=== PATIENT | female | born 1995 | race African-American/Black ===

== ENCOUNTER 2020-09-04 08:05 | Outpatient (REF) | payer OTHER, SELFPAY ==
--- NOTE | ~2020-09-04 | US_ITS ---
EXAMINATION: US ABDOMEN COMPLETE CLINICAL INFORMATION: Nausea and abdominal pain. COMPARISON: None TECHNIQUE: Real-time imaging of the abdominal viscera. FINDINGS: PANCREAS: Normal. ABDOMINAL AORTA: The proximal, mid, and distal segments are normal in caliber. INFERIOR VENA CAVA: Visualized portions are normal. LIVER: Normal. The liver is normal in size. The liver contour is normal. Parenchymal echogenicity is normal. No focal hepatic lesion. There is no intrahepatic biliary duct dilatation seen. GALLBLADDER: Normal. The gallbladder is physiologically distended without evidence of stones, sludge, polyps, wall thickening or pericholecystic fluid. COMMON BILE DUCT: Normal in caliber measuring 0.4 cm in diameter. RIGHT KIDNEY: Normal. No hydronephrosis. No renal calculi or focal parenchymal lesions. The kidney measures 8.8 cm in maximum dimension. LEFT KIDNEY: Normal. No hydronephrosis. No renal calculi or focal parenchymal lesions. The kidney measures 10.0 cm in maximum dimension. SPLEEN: Normal. The spleen measures 7.4 cm in maximum dimension. FREE FLUID: None. US/US abdomen complete IMPRESSION: Unremarkable complete abdomen ultrasound.
== END 2020-09-04 08:06 | disposition home or self-care (01) ==
LOC: HO.US 08:05
PROVIDERS: Visit Provider Registered Nurse
DX: R10.9 Unspecified abdominal pain (principal); R11.0 Nausea
CPT/HCPCS: 76700

== ENCOUNTER 2020-10-19 12:32 | Outpatient (REF) | payer OTHER, SELFPAY ==
--- NOTE | ~2020-10-19 | CT_ITS ---
EXAMINATION: CT ABDOMEN AND PELVIS WITH CONTRAST CLINICAL INFORMATION: Right lower quadrant pain COMPARISON: Previous abdominal ultrasound August 2020 TECHNIQUE: Multidetector volumetric images were obtained from the superior aspect of the liver through the pubic symphysis following administration 85 mL of Omnipaque 350 intravenous contrast. Sagittal and coronal reformatted images were obtained on the technologist's workstation. Oral contrast: Yes This CT examination was performed using dose optimization techniques as appropriate, variously including the following: *Automated exposure control *Adjustment of mA and/or kV according to patient size (this includes techniques or standardized protocols for targeted exams where dose is matched to indication/reason for exam; i.e. extremities or head) *Use of iterative reconstruction technique DLP: 260 mGy-cm FINDINGS: LUNG BASES: The visualized lung bases are unremarkable. LIVER, GALLBLADDER, AND BILIARY TREE: The liver is normal in size, shape, and attenuation. There is a 9 mm low-attenuation lesion seen high in the junction of the anterior segment of the right lobe and medial segment of the left lobe of the liver axial image 7 series 3. Hounsfield units following IV contrast measure 80 not compatible with a simple cyst. This was not seen by ultrasound. No other focal hepatic lesion or biliary ductal dilatation is present. The gallbladder is unremarkable with no evidence of radiopaque gallstones, gallbladder wall thickening, or obvious pericholecystic inflammatory changes. PANCREAS: Unremarkable. SPLEEN: Unremarkable. ADRENAL GLANDS: Unremarkable. KIDNEYS AND URETERS: There is stool seen throughout the colon in the colon is slightly distended questionable for constipation. Small and large bowel is otherwise unremarkable. The appendix is retrocecal. The appendix is normal appearing. BLADDER: Unremarkable. GASTROINTESTINAL TRACT: The small and large bowel are unremarkable. The appendix is unremarkable. ABDOMINAL WALL: No significant hernia is appreciated. LYMPH NODES: Normal. VASCULAR: Unremarkable. PELVIC VISCERA: Unremarkable. OSSEOUS STRUCTURES: There is curvature of the lower lumbar spine to the right. CT/CT abdomen pelvis w con IMPRESSION: Normal-appearing appendix. Stool throughout the colon questionable for constipation. 9 mm low-attenuation liver lesion not compatible with a simple cyst. This was not seen by ultrasound. Comparison with old outside exams if available is recommended. This could be further characterized with liver MRI with contrast if clinically indicated.
[2020-10-19] MEDS: iohexoL 350 MG/ML 100 ML INFUS..BTL IV (16:00)
[2020-10-19] MEDS: Barium Sulfate Oral (Vanilla) 450 ML ORAL.SUSP 900 ML PO (16:01)
== END 2020-10-19 12:33 | disposition home or self-care (01) ==
LOC: HO.CT 12:32
PROVIDERS: Visit Provider Emergency Medicine
DX: R10.31 Right lower quadrant pain (principal)
CPT/HCPCS: 74177; Q9967

== ENCOUNTER 2021-04-12 15:06 | Outpatient (REF) | payer OTHER, SELFPAY ==
--- NOTE | ~2021-04-12 | MR_ITS ---
EXAMINATION: MR ABDOMEN WITHOUT AND WITH CONTRAST CLINICAL INFORMATION: Follow-up liver lesion seen on CT scan. Liver disease. COMPARISON: Previous abdominal and pelvic CT scan September 2020 and abdominal ultrasound August 2020. TECHNIQUE: MR abdomen was performed without and with use of 5 mL intravenous Gadavist gadolinium contrast. Postcontrast images are performed in multiphase dynamic sequences. Imaging was performed in 3 planes. FINDINGS: LUNG BASES: The visualized lung bases are unremarkable. LIVER, GALLBLADDER, AND BILIARY TREE: The liver is normal in size, smooth in contour, and normal in signal. There is a 9 mm lesion high in the liver at the junction of the medial segment of the left lobe and anterior segment of the right lobe. This is low signal on T1-weighted sequences, high signal on T2-weighted sequences and demonstrates minimal peripheral enhancement. No septations, solid component or mural nodularity is seen. MR appearance is most suggestive of a complex cyst. No other focal liver lesion is seen. The gallbladder is unremarkable with no evidence of gallbladder wall thickening, or obvious pericholecystic inflammatory changes. PANCREAS: Unremarkable. SPLEEN: Normal. ADRENAL GLANDS: Normal. KIDNEYS AND URETERS: The kidneys are normal in size, shape, and enhance symmetrically. No hydronephrosis. No perinephric stranding. GASTROINTESTINAL TRACT: No bowel obstruction. No ascites or fluid collection. ABDOMINAL WALL: No significant hernia is appreciated. LYMPH NODES: No lymphadenopathy. VASCULAR: Unremarkable. OSSEOUS STRUCTURES: Marrow signal normal. MR/MR abdomen wo/w con IMPRESSION: 9 mm lesion high in the liver at the junction of the medial segment of the left lobe and anterior segment of the right lobe. Signal and enhancement characteristics are most suggestive of a complex cyst with peripheral wall enhancement. Six-month imaging follow-up recommended.
== END 2021-04-12 15:07 | disposition home or self-care (01) ==
LOC: HO.MRI 15:06
PROVIDERS: Visit Provider Emergency Medicine
DX: K76.9 Liver disease, unspecified (principal)
CPT/HCPCS: 74183; A9585

== ENCOUNTER 2021-09-29 13:27 | Outpatient (REF) | payer OTHER, SELFPAY ==
--- NOTE | ~2021-09-29 | US_ITS ---
EXAMINATION: US PELVIS CLINICAL INFORMATION: 26-year-old female found to have hyperechoic mass within the right ovary on outside imaging. For follow-up. COMPARISON: Report from prior outside ultrasound is available and is reviewed during interpretation of the current study. TECHNIQUE: Ultrasound of the pelvis is performed using transabdominal approach only. The patient refused transvaginal exam. FINDINGS: Uterus: The uterus is anteverted and measures 7.2 x 2.9 x 4.3 cm. The double wall endometrial thickness is 0.7 mm. The endometrium appears to be into 2 different components extending to the right and left of the midline at the fundus, may represent arcuate uterus. The uterus is smooth in contour and has normal myometrial echogenicity. No visible fibroid. Adnexa: Both ovaries are visualized. There is normal color flow to the adnexa. There is no ovarian torsion. There is no pelvic ascites or fluid collection. Right ovary measures 3.5 x 2.0 x 2.5 cm. Specific note is made of approximately 1 cm maximum dimension echogenic focus within the right ovary, may represent small fat and/or hemorrhage. Evaluation is technically limited due to patient's refusal for transvaginal examination. Alternative imaging modality such as MRI of the pelvis may be considered for further clarification, if clinically appropriate. Left ovary measures 2.8 x 1.9 x 2.4 cm. Trace amount of free fluid is noted within the pelvis. US/US pelvic and transvaginal IMPRESSION: 1. The right ovary shows 1 cm maximum dimension echogenic focus, not optimally characterized since the patient refused transvaginal examination. However, may represent small focal fat and/or hemorrhage. Possibility of the thyroid cyst/mature cystic teratoma is not excluded. Alternative imaging modality such as MRI of the pelvis may be considered for further clarification, if clinically appropriate. 2. Morphologically normal-appearing left ovary and uterus. However, the endometrium at the level of the fundus of the uterus appears to be into 2 different component extending to the right and left of the midline, may represent arcuate uterus. 3. Trace amount of fluid within the pelvis.
== END 2021-09-29 13:28 | disposition home or self-care (01) ==
LOC: HO.US 13:27
PROVIDERS: PCP Registered Nurse Community Health; Visit Provider Registered Nurse Community Health
DX: N83.8 Other noninflammatory disorders of ovary, fallopian tube and broad ligament (principal)
CPT/HCPCS: 76830; 76856

== ENCOUNTER 2021-10-13 14:54 | Outpatient (REF) | payer OTHER, SELFPAY ==
--- NOTE | ~2021-10-13 | MR_ITS ---
EXAMINATION: MRI PELVIS WITH AND WITHOUT CONTRAST CLINICAL INFORMATION: Reason for Exam Abnormality of right ovary on ultrasound 09/29/21 COMPARISON: Pelvic ultrasound 09/29/2021 TECHNIQUE: Multiple routine MRI sequences through the pelvis were obtained before and after the uneventful administration of 5 mL of Gadavist gadolinium-based IV contrast. FINDINGS: UTERUS: Anteverted uterus has a normal configuration without arcuate morphology and measures 8.4 x 3.7 x 4.0. cm ([id number] x anterior-posterior x transverse). Endometrium is uniform and measures 0.7 cm in thickness. There is focal junctional zone thickening posteriorly measuring up to 1.3 cm in thickness raising suspicion for adenomyosis. CERVIX: Few nabothian cysts in the cervix. VAGINA: Unremarkable. OVARIES: The right ovary measures 3.2 x 3.1 cm. The right ovary is remarkable for an involuting physiologic corpus luteum. No intrinsically T1 hyperintense lesions to suggest fat or hemorrhage to correspond to the sonographic finding which may reflect a technical artifact. The left ovary measures 3.1 x 2.0 cm. Left ovary is unremarkable. KIDNEYS: 2 normally positioned kidneys are seen. BLADDER: Unremarkable. PELVIC FREE FLUID: Trace physiologic free fluid in the pelvis. LYMPH NODES: No pathologically enlarged lymph nodes. OSSEOUS STRUCTURES: No acute or suspicious osseous abnormalities. MR/MR pelvis wo/w con IMPRESSION: The right ovary is remarkable for an involuting physiologic corpus luteum. No intrinsically T1 hyperintense lesions to suggest fat or hemorrhage to correspond to the sonographic finding which may have reflected a technical artifact. There is focal junctional zone thickening to 1.3 cm raising suspicion for adenomyosis. Uterus has a normal configuration without arcuate morphology.
== END 2021-10-13 14:55 | disposition home or self-care (01) ==
LOC: HO.MRI 14:54
PROVIDERS: Visit Provider Registered Nurse Community Health
DX: N83.8 Other noninflammatory disorders of ovary, fallopian tube and broad ligament (principal)
CPT/HCPCS: 72197; A9585

== ENCOUNTER 2021-10-28 17:50 | Outpatient (REF) | payer OTHER, SELFPAY ==
--- NOTE | ~2021-10-28 | MR_ITS ---
EXAMINATION: MR ABDOMEN WITHOUT AND WITH CONTRAST CLINICAL INFORMATION: Follow up liver lesion COMPARISON: Previous MRI of the abdomen March 2021, CT of the abdomen September 2020 and abdominal ultrasound August 2020 TECHNIQUE: MR abdomen was performed without and with use of 5 mL intravenous Gadavist gadolinium contrast. Postcontrast images are performed in multiphase dynamic sequences. Imaging was performed in 3 planes. FINDINGS: LUNG BASES: The visualized lung bases are unremarkable. LIVER, GALLBLADDER, AND BILIARY TREE: The liver is normal in size, smooth in contour, and normal in signal. There is a 8 mm lesion high in the junction of the medial segment of the left lobe and anterior segment of the right lobe. This is low signal on T1-weighted sequences, high signal on T2-weighted sequences and demonstrates peripheral thin wall enhancement and may contain a single thin septation. This is suggestive of a complex cyst and is stable from previous MRI March 2021. No other focal liver lesion is seen. No biliary ductal dilatation is present. The gallbladder is unremarkable with no evidence of gallbladder wall thickening, or obvious pericholecystic inflammatory changes. PANCREAS: Unremarkable. SPLEEN: Normal. ADRENAL GLANDS: Normal. KIDNEYS AND URETERS: The kidneys are normal in size, shape, and enhance symmetrically. No hydronephrosis. No perinephric stranding. GASTROINTESTINAL TRACT: No bowel obstruction. No ascites or fluid collection. ABDOMINAL WALL: No significant hernia is appreciated. LYMPH NODES: No lymphadenopathy. VASCULAR: Unremarkable. OSSEOUS STRUCTURES: Marrow signal normal. MR/MR abdomen wo/w con IMPRESSION: Stable probable complex cyst in the liver.
== END 2021-10-28 17:51 | disposition home or self-care (01) ==
LOC: HO.MRI 17:50
PROVIDERS: Visit Provider Registered Nurse Community Health
DX: R93.2 Abnormal findings on diagnostic imaging of liver and biliary tract (principal)
CPT/HCPCS: 74183; A9585

== ENCOUNTER 2022-07-22 11:02 | Outpatient (REF) | payer OTHER, SELFPAY ==
[2022-07-23 13:23] LABS: BV Int Neg Control Negative (Negative); BV Int Pos Control Positive (Positive)
== END 2022-07-22 11:03 | disposition home or self-care (01) ==
LOC: HO.LNP 11:02
PROVIDERS: Visit Provider Advanced Practice Midwife
DX: R10.2 Pelvic and perineal pain (principal); R39.15 Urgency of urination; R10.31 Right lower quadrant pain; N89.8 Other specified noninflammatory disorders of vagina
CPT/HCPCS: 87480; 87510; 87660; 99212

== ENCOUNTER 2022-07-22 13:09 | Emergency (ER) | payer OTHER, SELFPAY ==
--- NOTE | ~2022-07-22 | CT_ITS ---
EXAMINATION: CT ABDOMEN AND PELVIS WITHOUT CONTRAST CLINICAL INFORMATION: Right lower quadrant pain. Question stone. COMPARISON: MRI 10/28/2021. CT 10/19/2020. TECHNIQUE: Multidetector volumetric imaging was performed from the superior aspect of the liver through the pubic symphysis. Sagittal and coronal reformatted images were obtained on the technologist's workstation. This CT examination was performed using dose optimization techniques as appropriate, variously including the following: *Automated exposure control *Adjustment of mA and/or kV according to patient size (this includes techniques or standardized protocols for targeted exams where dose is matched to indication/reason for exam; i.e. extremities or head) *Use of iterative reconstruction technique DLP: 354 mGy-cm FINDINGS: LUNG BASES: The visualized lung bases are unremarkable. LIVER, GALLBLADDER, AND BILIARY TREE: The liver is normal in size, shape, and attenuation. No biliary ductal dilatation. Patent appearance of the previously evaluated hepatic cyst.. The gallbladder is unremarkable with no evidence of radiopaque gallstones, gallbladder wall thickening, or obvious pericholecystic inflammatory changes. PANCREAS: Unremarkable. SPLEEN: Unremarkable. ADRENAL GLANDS: Unremarkable. KIDNEYS AND URETERS: The kidneys are normal in size, shape, and attenuation. Question of subtle medullary nephrocalcinosis. No hydronephrosis, hydroureter, or calculi seen. No perinephric stranding. BLADDER: Unremarkable. GASTROINTESTINAL TRACT: The stomach is distended without wall thickening. Normal caliber small bowel. No obstruction. No colonic wall thickening or inflammatory change. Mild diffuse colonic stool burden. Normal appendix. No free air or free fluid. ABDOMINAL WALL: No significant hernia is appreciated. LYMPH NODES: Normal. VASCULAR: Unremarkable. PELVIC VISCERA: The uterus and adnexa are unremarkable. Multiple pelvic phleboliths. OSSEOUS STRUCTURES: No acute or suspicious osseous abnormality. CT/CT abdomen pelvis wo IV con IMPRESSION: No acute findings in the abdomen or pelvis. No hydronephrosis or nephrolithiasis. Normal appendix. 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 Fleischner guidelines were followed.
--- NOTE | 2022-07-22 13:18 | ED_ITS ---
HPI - General Adult General Chief complaint: Abdominal Pain <IVANNA Arrieta - Last Filed: 07/22/22 13:24> Stated complaint: Sent by OBGYN to check appendix <IVANNA Arrieta - Last Filed: 07/22/22 13:24> Time Seen by Provider: 07/22/22 15:34 <IVANNA Arrieta - Last Filed: 07/22/22 13:24> Source: patient <Kaylyn Aburto АНДРЕЙ Curiel - Last Filed: 07/23/22 12:51> Mode of arrival: ambulatory <Kaylyn Aburto АНДРЕЙ Curiel - Last Filed: 07/23/22 12:51> Limitations: no limitations <Kaylyn Curiel CNP - Last Filed: 07/23/22 12:51> History of Present Illness HPI narrative: Patient is a 26 old female who presents to the emergency department for evaluation of right lower abdominal pain and dysuria, intermittent hematuria for the past 2 months. She has been followed by her rn bariatric provider for this. She was referred to the emergency department today to exclude appendicitis. Denies fevers, chills, nausea, vomiting, left-sided abdominal pain, vaginal discharge, abnormal vaginal bleeding. <Kaylyngavin Curiel CNP - Last Filed: 07/23/22 12:51> Related Data Home medications: Home Medications Medication Instructions Recorded Confirmed No Known Home Meds 01/27/22 01/27/22 <IVANNA Arrieta - Last Filed: 07/22/22 13:24> Allergies/adverse reactions: Allergies Allergy/AdvReac Type Severity Reaction Status Date / Time No Known Allergies Allergy Unverified 07/22/22 11:15 <IVANNA Arrieta - Last Filed: 07/22/22 13:24> Review of Systems Review of Systems: Constitutional: No weight loss, fever, chills, weakness or fatigue. Skin: No rash or itching. Cardiovascular: No chest pain, chest pressure or chest discomfort. No palp itations or pedal edema. Respiratory: No shortness of breath, cough or sputum production. Gastrointestinal: No anorexia, nausea, vomiting or diarrhea. Positive abdominal pain. No blood in stool. Genitourinary: Positive burning micturition. No urinary frequency or incontinence. Musculoskeletal: No muscle pain, back pain, joint pain or stiffness. Psychiatric: No depression or anxiety. <Kaylyn Curiel CNP - Last Filed: 07/23/22 12:51> Yes all other systems are reviewed and are negative <Kaylyn Curiel CNP - Last Filed: 07/23/22 12:51> FOR[facility], [facility] Past Medical History Attestation statement: The following information was validated with the patient. <Kaylyn Curiel CNP - Last Filed: 07/23/22 12:51> Source: old records reviewed <Kaylyn Curiel CNP - Last Filed: 07/23/22 12:51> Medical History: Medical History Hematuria Kidney cysts <IVANNA Arrieta - Last Filed: 07/22/22 13:24> Family History Family History: Family History Father HTN (hypertension) Sister Asthma Paternal Grandfather Prostate cancer Other Diabetes <IVANNA Arrieta - Last Filed: 07/22/22 13:24> Social History Social History: Social History Household Members: Significant Other Housing: Apartment Alcohol intake: current Alcohol intake frequency: holidays/special occasions only Patient Tobacco Use Status: Never used Tobacco Advance Directives: No Advance Directives Information Provided: No service: No Current occupational status: employed 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 Sexual orientation: Straight/Heterosexual Gender identity: Female <IVANNA Arrieta - Last Filed: 07/22/22 13:24> Physical Exam ED Vital Signs: Vital Signs - 24 hr 07/22/22 13:20 Temperature 98 F Pulse Rate 94 Respiratory Rate 18 Blood Pressure 132/79 Pulse Oximetry 100 Oxygen Delivery Method Room Air BMI result Body Mass Index 24.6 <IVANNA Arrieta - Last Filed: 07/22/22 13:24> Vital Signs - 24 hr 07/22/22 13:20 Temperature 98 F Pulse Rate 94 Respiratory Rate 18 Blood Pressure 132/79 Pulse Oximetry 100 Oxygen Delivery Method Room Air BMI result Body Mass Index 24.6 <Kaylyn Curiel CNP - Last Filed: 07/23/22 12:51> Appearance: Alert.?Oriented to person, place and time. No acute distress.?Normal affect. Eyes: Pupils equal, round and reactive to light.? ENT: Pharynx normal.?? Neck: Normal inspection.? Neck supple.?? CVS: Heart sounds normal. Normal heart rate and rhythm.? Pulses normal.?? Respiratory: No respiratory distress.? Lung sounds clear to auscultation bilat erally?? Abdomen: Soft and non-tender. Normoactive bowel sounds. No CVA tenderness. No rebound tenderness. Negative Rovsing sign, psoas sign, obturator's sign Skin: Skin warm and dry.? Normal skin color.? Extremities: No lower extremity edema.? Neuro: Moves all extremities spontaneously. Sensation intact bilat erally.Ambulates with normal steady gait. <Kaylyn Curiel CNP - Last Filed: 07/23/22 12:51> Course Course Course Narrative: RME performed by Whit Mccauley PA-C. Patient is a 26 year old female presenting to the emergency department with right lower quadrant abdominal pain x months and intermittent blood in her urine. Labs and plain CT ordered. Patient placed back in waiting room pending results and room availability. <IVANNA Arrieta Last Filed: 07/22/22 13:24> Medical Decision Making Medical Decision Making MDM Narrative: Patient is a 26 old female who presents to emergency department for evaluation of ongoing right abdominal pain, dysuria, and hematuria. At the time of my examination she is overall well-appearing. Abdominal examination is benign. No CVA tenderness. She is afebrile without tachycardia tachypnea or hypoxia. Reviewed RME; labs indicating no leukocytosis or anemia, CMP is unremarkable, no BHAVANI. HCG is negative. Urinalysis without evidence of infection. CT of the abdomen and pelvis without acute abnormalities, no evidence of hydronephrosis, nephrolithiasis, appendix is normal. Patient being followed by OBGYDoreen; Milton Kelly, office visit 07/22/22 being referred to [facility] for persistent vulvar pain/burning, and management adenomyosis. At this time patient is stable for discharge, advised continued outpatient follow-up with OBGYN as scheduled. <Kaylyn Curiel CNP - Last Filed: 07/23/22 12:51> Differential Diagnosis Differential Diagnoses: The differential diagnosis associated with the presentation includes (As noted above) <Kaylyn Aburto АНДРЕЙ Curiel - Last Filed: 07/23/22 12:51> Lab Data MDM Lab Attestation statement: I reviewed the patient's lab results. <Kaylyngavin Curiel CNP - Last Filed: 07/23/22 12:51> Result Diagrams: 07/22/22 13:46 07/22/22 13:46 <IVANNA Arrieta - Last Filed: 07/22/22 13:24> Labs: Lab Results 07/22/22 07/22/22 07/22/22 Range/Units 13:46 13:46 16:43 WBC 6.2 (4.8-10.8) X10*3/uL RBC 3.98 L (4.20-5.50) X10*6/uL Hgb 12.4 (12.0-16.0) g/dl Hct 37.3 (37.0-47.0) % MCV 93.7 (80.0-98.0) fL MCH 31.2 (27.0-33.0) pg MCHC 33.2 (31.0-35.0) g/dl RDW 13.1 (11.0-16.0) % Plt Count 303 (160-400) X10*3/uL MPV 8.9 L (9.4-12.3) fL Immature Gran % (Auto) 0.2 (0.0-0.4) % Neut % (Auto) 68.8 (45-73) % Lymph % (Auto) 25.4 (20-40) % [place] % (Auto) 4.5 (2-11) % Eos % (Auto) 0.5 (0-4) % Baso % (Auto) 0.6 (0-2) % Lymph # (Auto) 1.6 (1.2-4.9) X10*3/uL [place] # (Auto) 0.3 (0.1-1.2) X10*3/uL Eos # (Auto) 0.0 (0.0-0.4) X10*3/uL Baso # (Auto) 0.0 (0.0-0.2) X10*3/uL Abs Immat Gran (auto) 0.01 (0.00-0.03) X10*3/uL Absolute Neuts (auto) 4.2 (2.0-8.3) x10*3/uL Absolute Nucleated RBC 0.000 (0.0-0.012) X10*3/uL Nucleated RBC % (auto) 0.0 (0.0-0.2) /100WBC Sodium 140 (135-145) mmol/L Potassium 3.9 (3.3-5.1) mmol/L Chloride 104 (96-108) mmol/L Carbon Dioxide 28 (22-29) mmol/L Anion Gap 12 (12-20) BUN 13 (9-16) mg/dL Creatinine 0.96 (0.5-1.4) mg/dL Estim Creat Clear Calc 68.5 Estimated GFR > 60 Random Glucose 84 (60-115) mg/dL Calcium 9.9 (8.4-10.2) mg/dL Magnesium 2.1 (1.6-2.6) mg/dL Total Bilirubin 0.6 (0.0-1.0) mg/dL AST 21 (5-31) U/L ALT 14 (0-31) U/L Alkaline Phosphatase 45 (39-117) U/L Total Protein 7.3 (6.5-8.0) g/dL Albumin 4.7 (3.5-5.0) g/dL Beta HCG, Quant < 2 mIU/mL Urine Color Yellow Urine Appearance Clear Urine pH 7.5 (5.0-9.0) Ur Specific [place] 1.020 (1.005-1.025) Urine Protein Negative (Neg-Trace) mg/dL Urine Glucose (UA) Negative (Negative) mg/dL Urine Ketones Negative (Negative) mg/dL Urine Blood Negative (Negative) Urine Nitrite Negative (Negative) Ur Leukocyte Esterase Negative (Negative) <IVANNA Arrieta - Last Filed: 07/22/22 13:24> Lab Results 07/22/22 07/22/22 07/22/22 Range/Units 13:46 13:46 16:43 WBC 6.2 (4.8-10.8) X10*3/uL RBC 3.98 L (4.20-5.50) X10*6/uL Hgb 12.4 (12.0-16.0) g/dl Hct 37.3 (37.0-47.0) % MCV 93.7 (80.0-98.0) fL MCH 31.2 (27.0-33.0) pg MCHC 33.2 (31.0-35.0) g/dl RDW 13.1 (11.0-16.0) % Plt Count 303 (160-400) X10*3/uL MPV 8.9 L (9.4-12.3) fL Immature Gran % (Auto) 0.2 (0.0-0.4) % Neut % (Auto) 68.8 (45-73) % Lymph % (Auto) 25.4 (20-40) % [place] % (Auto) 4.5 (2-11) % Eos % (Auto) 0.5 (0-4) % Baso % (Auto) 0.6 (0-2) % Lymph # (Auto) 1.6 (1.2-4.9) X10*3/uL [place] # (Auto) 0.3 (0.1-1.2) X10*3/uL Eos # (Auto) 0.0 (0.0-0.4) X10*3/uL Baso # (Auto) 0.0 (0.0-0.2) X10*3/uL Abs Immat Gran (auto) 0.01 (0.00-0.03) X10*3/uL Absolute Neuts (auto) 4.2 (2.0-8.3) x10*3/uL Absolute Nucleated RBC 0.000 (0.0-0.012) X10*3/uL Nucleated RBC % (auto) 0.0 (0.0-0.2) /100WBC Sodium 140 (135-145) mmol/L Potassium 3.9 (3.3-5.1) mmol/L Chloride 104 (96-108) mmol/L Carbon Dioxide 28 (22-29) mmol/L Anion Gap 12 (12-20) BUN 13 (9-16) mg/dL Creatinine 0.96 (0.5-1.4) mg/dL Estim Creat Clear Calc 68.5 Estimated GFR > 60 Random Glucose 84 (60-115) mg/dL Calcium 9.9 (8.4-10.2) mg/dL Magnesium 2.1 (1.6-2.6) mg/dL Total Bilirubin 0.6 (0.0-1.0) mg/dL AST 21 (5-31) U/L ALT 14 (0-31) U/L Alkaline Phosphatase 45 (39-117) U/L Total Protein 7.3 (6.5-8.0) g/dL Albumin 4.7 (3.5-5.0) g/dL Beta HCG, Quant < 2 mIU/mL Urine Color Yellow Urine Appearance Clear Urine pH 7.5 (5.0-9.0) Ur Specific [place] 1.020 (1.005-1.025) Urine Protein Negative (Neg-Trace) mg/dL Urine Glucose (UA) Negative (Negative) mg/dL Urine Ketones Negative (Negative) mg/dL Urine Blood Negative (Negative) Urine Nitrite Negative (Negative) Ur Leukocyte Esterase Negative (Negative) <Kaylyn Curiel CNP - Last Filed: 07/23/22 12:51> Independent Interpretation I performed an independent interpretation of an: CT Scan <Kaylyn Curiel CNP - Last Filed: 07/23/22 12:51> Radiology Impression Discussion of test interpretation with radiology: I have reviewed the radiologist's reading. <Kaylyn Curiel CNP - Last Filed: 07/23/22 12:51> Radiologist Impression: CT/CT abdomen pelvis wo IV con IMPRESSION: No acute findings in the abdomen or pelvis. No hydronephrosis or nephrolithiasis. Normal appendix. ? 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 ? Fleischner guidelines were followed. <Kaylyn Curiel CNP - Last Filed: 07/23/22 12:51> External Record Review External record reviewed: Outpatient record (As noted above) <Kaylyn Curiel CNP - Last Filed: 07/23/22 12:51> Discharge Plan Discharge Clinical Impression: Abdominal pain <IVANNA Arrieta - Last Filed: 07/22/22 13:24> Patient Disposition: Home, Self-Care <IVANNA Arrieta - Last Filed: 07/22/22 13:24> Instructions: Abdominal Pain (ED) <IVANNA Arrieta - Last Filed: 07/22/22 13:24> Additional Instructions: As we discussed, your blood work today was overall normal, CT scan of your abdomen does not show any evidence of acute abnormalities such as appendicitis or kidney stones. Please follow-up with your rn bariatric provider for further management and evaluation. You can take ibuprofen 200 mg, 3 tablets (600mg) every 6-8 hours as needed for pain, in addition to Tylenol 500 mg, 2 tablets (1,000mg) every 4-6 hours as needed for pain, but not to exceed 3 doses daily (3,000mg).? You may return back to emergency department any new or worsening symptoms or concerns. <IVANNA Arrieta - Last Filed: 07/22/22 13:24> Prescriptions: No Action No Known Home Meds <IVANNA Arrieta - Last Filed: 07/22/22 13:24> Referrals: Physician,Unknown J [Primary Care Provider] - <IVANNA Arrieta - Last Filed: 07/22/22 13:24> Interventions: ED Discharge Assessment Last Done: 07/22/22 17:16 <IVANNA Arrieta - Last Filed: 07/22/22 13:24> Discharge Date/Time: 07/22/22 17:17 <IVANNA Arrieta - Last Filed: 07/22/22 13:24>
[2022-07-22 13:20] VITALS: BP 132/79; PULSE 94; RESP 18; TEMP 36.6; O2SAT 100; BMI 24.6
[2022-07-22 13:50] LABS: MANUAL DIFF FLAG NO
[2022-07-22 13:52] LABS: Basophils Percent Auto 0.6 % (0-2); Eosinophils Percent Auto 0.5 % (0-4); Hematocrit 37.3 % (37.0-47.0); Hemoglobin 12.4 g/dl (12.0-16.0); Imm Gran Abs Auto 0.01 X10*3/uL (0.00-0.03); Imm Gran Pct Auto 0.2 % (0.0-0.4); Lymphocytes Absolute Auto 1.6 X10*3/uL (1.2-4.9); Lymphocytes Percent Auto 25.4 % (20-40); Mean Corpuscular HGB Conc 33.2 g/dl (31.0-35.0); Mean Corpuscular Hemoglobin 31.2 pg (27.0-33.0); Mean Corpuscular Volume 93.7 fL (80.0-98.0); Mean Platelet Volume 8.9 fL (9.4-12.3); Monocytes Absolute Auto 0.3 X10*3/uL (0.1-1.2); Monocytes Percent Auto 4.5 % (2-11); Neutrophils Absolute Auto 4.2 x10*3/uL (2.0-8.3); Neutrophils Percent Auto 68.8 % (45-73); Platelet Count 303 X10*3/uL (160-400); Red Blood Count 3.98 X10*6/uL (4.20-5.50); Red Cell Distribution Width 13.1 % (11.0-16.0); White Blood Count 6.2 X10*3/uL (4.8-10.8)
[2022-07-22 14:18] LABS: Alanine Aminotransferase 14 U/L (0-31); Albumin Level 4.7 g/dL (3.5-5.0); Alkaline Phosphatase 45 U/L (39-117); Anion Gap 12 (12-20); Aspartate Amino Transferase 21 U/L (5-31); Bilirubin Total 0.6 mg/dL (0.0-1.0); Blood Urea Nitrogen 13 mg/dL (9-16); Calcium 9.9 mg/dL (8.4-10.2); Carbon Dioxide 28 mmol/L (22-29); Chloride 104 mmol/L (96-108); Creatinine Clr Calc Pharmacy 68.5; Estimated Glomerular Filt Rate > 60; Glucose Random 84 mg/dL (60-115); HCG Quantitative < 2 mIU/mL; Magnesium 2.1 mg/dL (1.6-2.6); Potassium 3.9 mmol/L (3.3-5.1); Sodium 140 mmol/L (135-145); Total Protein 7.3 g/dL (6.5-8.0)
[2022-07-22 16:56] LABS: Appearance Urine Clear; Color Urine Yellow; Glucose Urine UA Negative (Negative); Leukocyte Esterase Urine Negative (Negative); Nitrite Urine Negative (Negative); PH 7.5 (5.0-9.0); Urine Blood Negative (Negative); Urine Ketones Negative (Negative); Urine Protein Negative (Neg-Trace)
== END 2022-07-22 17:17 | disposition home or self-care (01) ==
PROVIDERS: Physician Assistant Medical; Emergency Provider Student in an Organized Health Care Education/Training Program
DX: R10.31 Right lower quadrant pain (principal)
CPT/HCPCS: 36415; 74176; 80053; 81003; 83735; 84702; 85025; 99282; 99284

== ENCOUNTER 2022-09-02 14:47 | Outpatient (REF) | payer OTHER, SELFPAY | END 2022-09-02 14:48 | disposition home or self-care (01) | LOC: HO.LAB 14:47 | PROVIDERS: Visit Provider Nurse Practitioner Family | DX: R31.29 Other microscopic hematuria (principal); R30.0 Dysuria; R10.2 Pelvic and perineal pain | CPT/HCPCS: 87086; 99202 ==

== ENCOUNTER 2023-08-18 14:47 | Outpatient (REF) | payer OTHER, SELFPAY ==
--- NOTE | ~2023-08-18 | US_ITS ---
EXAMINATION: US RETROPERITONEAL COMPLETE (RENAL) CLINICAL INFORMATION: Other microscopic hematuria. COMPARISON: CT abdomen and pelvis 07/22/2022. MRI abdomen 10/28/2021. Ultrasound abdomen complete 09/04/2020. TECHNIQUE: Real-time imaging of the kidneys and bladder. FINDINGS: RIGHT KIDNEY: 8.9 x 3.7 x 5.1 cm (SAG x AP x TRV). The kidney is normal in size, contour, and echogenicity. Renal cortical thickness is normal. No calculi, hydronephrosis or focal parenchymal lesions. LEFT KIDNEY: 9.9 x 4.1 x 5 cm (SAG x AP x TRV). The kidney is normal in size, contour, and echogenicity. Renal cortical thickness is normal. No calculi, hydronephrosis or focal parenchymal lesions. BLADDER: Well distended and normal. Prevoid bladder volume is 359 mL. Postvoid bladder volume is 6 mL. US/US retroperitoneal comp IMPRESSION: Kidneys and urinary bladder have a normal sonographic appearance. There is no evidence of nephrolithiasis or hydronephrosis.
== END 2023-08-18 14:48 | disposition home or self-care (01) ==
LOC: HO.US 14:47
PROVIDERS: Visit Provider Nurse Practitioner Family
DX: R31.29 Other microscopic hematuria (principal)
CPT/HCPCS: 76770

== ENCOUNTER 2023-09-18 18:20 | Outpatient (REF) | payer OTHER, SELFPAY ==
[2023-09-19 07:05] LABS: CT PCR NOT DETECTED (Not Detect.); NG PCR NOT DETECTED (Not Detect.)
== END 2023-09-18 18:21 | disposition home or self-care (01) ==
LOC: HO.HHCLNP 18:20
PROVIDERS: Visit Provider Student in an Organized Health Care Education/Training Program
DX: Z00.00 Encounter for general adult medical examination without abnormal findings (principal)
CPT/HCPCS: 0353U

== ENCOUNTER 2023-09-22 10:43 | Outpatient (REF) | payer OTHER, SELFPAY ==
[2023-09-22 11:47] LABS: Hemoglobin 12.7 g/dl (12.0-16.0); Mean Corpuscular HGB Conc 33.4 g/dl (31.0-35.0); Mean Corpuscular Hemoglobin 30.8 pg (27.0-33.0); Mean Platelet Volume 9.5 fL (9.4-12.3); Platelet Count 278 X10*3/uL (160-400); Red Blood Count 4.13 X10*6/uL (4.20-5.50); Red Cell Distribution Width 13.1 % (11.0-16.0); White Blood Count 4.6 X10*3/uL (4.8-10.8)
[2023-09-22 12:00] LABS: Estimated Average Glucose 88 mg/dL; Hemoglobin A1c % 4.7 % (<6.0)
[2023-09-22 14:32] LABS: Syphilis Screen Nonreactive (Nonreactive)
[2023-09-22 14:39] LABS: Alanine Aminotransferase 12 U/L (0-31); Albumin Level 4.3 g/dL (3.5-5.0); Alkaline Phosphatase 53 U/L (39-117); Anion Gap 11 (12-20); Aspartate Amino Transferase 21 U/L (5-31); Bilirubin Total 0.5 mg/dL (0.0-1.0); Blood Urea Nitrogen 12 mg/dL (9-16); Calcium 9.4 mg/dL (8.4-10.2); Carbon Dioxide 25 mmol/L (22-29); Chloride 106 mmol/L (96-108); Cholesterol 202 mg/dL (<200); Estimated Glomerular Filt Rate > 60; Glucose Random 85 mg/dL (60-115); HDL Cholesterol 69 mg/dL (>40); LDL Cholesterol Calculated 125 mg/dL (<100); Potassium 3.9 mmol/L (3.3-5.1); Sodium 138 mmol/L (135-145); TSH reflex Free T4 1.56 uIU/mL (0.32-4.0); Total Protein 7.2 g/dL (6.5-8.0); Triglycerides 43 mg/dL (<150)
[2023-09-24 22:09] LABS: TS Negative Control Passed; TS Panel A 0; TS Panel B 0; TS Positive Control Passed; TSpotTB Negative (Negative)
[2023-09-25 08:24] LABS: HBS Num1 1.91 mIU/mL (0-7.99); HBc Num1 0.14 S/CO (0.00-0.79); HBsAGNum1 0.31 S/CO (0.00-0.99); HIV AB/AG Nonreactive (Nonreactive); HIV Num 1 0.07 S/CO (0.00-0.99); Hepatitis B Core Antibody Nonreactive (Nonreactive); Hepatitis B Surface Antigen Negative (Negative); ~Hepatitis B Surface Antibody NONREACTIVE (Nonreactive); ~Hepatitis C Antibody Nonreactive (Nonreactive)
== END 2023-09-22 10:44 | disposition home or self-care (01) ==
LOC: HO.HHCL 10:43
PROVIDERS: Visit Provider Student in an Organized Health Care Education/Training Program
DX: Z00.00 Encounter for general adult medical examination without abnormal findings (principal)
CPT/HCPCS: 36415; 80053; 80061; 83036; 84443; 85027; 86481; 86704; 86706; 86780; 86803; 87340; 87389

== ENCOUNTER 2023-10-13 13:40 | Outpatient (REF) | payer OTHER, SELFPAY ==
[2023-10-13 17:43] LABS: Urine Cytology See Pathology rpt
== END 2023-10-13 13:41 | disposition home or self-care (01) ==
LOC: HO.LNP 13:40
PROVIDERS: Visit Provider Nurse Practitioner Family
DX: R31.29 Other microscopic hematuria (principal)
CPT/HCPCS: 81003; 88112; 99212

== ENCOUNTER 2023-10-13 13:40 | Outpatient (AMB) | payer OTHER, SELFPAY ==
--- NOTE | 2023-10-13 13:44 | A.OFFVIS_ITS ---
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 In discussion with the patient today she reports to be doing and feeling well. Recent retroperitoneal ultrasound results reviewed with the patient today. Bilateral kidneys with no calculi, lesions, and or hydronephrosis. The bladder is well distended and normal. Pre void bladder volume is approximately 360 mL. Postvoid bladder volume is approximately 5 mL. Kidneys and urinary bladder have a normal sonographic appearance. There is no evidence of nephrolithiasis or hydronephrosis. In discussion with the patient discusses following up with [facility] for her abnormal menses and adenomyosis. In office urinalysis results reviewed with the patient today. 2+ microscopic hematuria however patient reports currently being on menses. She otherwise denies any bothersome urinary issues or concerns. She reports she has been increasing her fluid intake and eating more fruits and vegetables and feels this has been helpful for her overall health and well-being. When asked patient denies incontinence, nocturia, hematuria, foul smelling urine, changes to urinary stream, flank pain, fever, and or chills. She otherwise offers no other issues or concerns. 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 Sexual orientation: Straight/Heterosexual Gender identity: Female Female Reproductive History Menstrual Age of Menarche: 14 Review of Systems Const All systems reviewed & are unremarkable except as noted in HPI and below Reports as per HPI Eyes Reports no additional complaints ENT Reports no additional complaints Card Reports no additional complaints Resp Reports no additional complaints GI Reports no additional complaints Reports as per HPI Musc Reports no additional complaints Neuro Reports no additional complaints Psych Reports no additional complaints Endo Reports no additional complaints Jl/Lymph Reports no additional complaints Aller/Immun Reports no additional complaints Physical Exam Const General: cooperative, healthy appearing, comfortable, no acute distress, well developed, alert and awake Nutritional Appearance: average body habitus Orientation/consciousness: patient oriented x3 Limitations: no limitations HEENT Head: Yes normal to inspection, Yes normocephalic and Yes atraumatic Ears: hearing grossly normal bilaterally Eyes General: appearance normal, both eyes and all related structures Neck Neck: Yes normal visual inspection and Yes trachea midline Chest Chest palpation & inspection: normal inspection of the chest Resp Effort & Inspection: normal respiratory effort and able to speak in complete sentences Cardio Rate: regular rate GI Inspection: Yes normal to inspection General: Yes no CVA tenderness Back/Spine/Pelvis Back: no CVA tenderness Skin General skin exam: no rashes or lesions noted Neuro General: patient oriented x3 Extrem General: Yes normal to inspection Psych Appearance: grossly normal and well kempt Mental Status: mental status grossly normal Speech and movement: Normal speech and movement present and Clear speech present Affect: normal affect Attitude: cooperative Thought process: Normal thought process present Thought content: Normal thought content present Insight: Good insight present (Psych) Judgement: Good judgement present (Psych) Results AMB Urinalysis, Automated UA Leukoctes 70 Karl/uL Last Edit by ChaddInsideTracksienna Loyola on 10/13/23 13:59 UA Nitrite Negative Last Edit by Posterous Nir on 10/13/23 13:59 UA Urobilinogen 0.2 mg/dL Last Edit by Posterous Nir on 10/13/23 13:59 UA Protein 0 mg/dL Last Edit by ChaddInsideTracksienna Loyola on 10/13/23 13:59 UA pH 6.0 Last Edit by ChaddInsideTracksienna Loyola on 10/13/23 13:59 UA Blood 80 Jeremiah/uL Last Edit by ChaddInsideTracksienna Loyola on 10/13/23 13:59 UA Specific Laurel 1.010 Last Edit by Jerrica Loyola on 10/13/23 13:59 UA Ketone Negative Last Edit by Jerrica Loyola on 10/13/23 13:59 UA Bilirubin 0 mg/dL Last Edit by Jerrica Loyola on 10/13/23 13:59 UA Glucose 0 mg/dL Last Edit by Jerrica Loyola on 10/13/23 13:59 Results Reviewed Results Reviewed: Laboratory Last Values Urine pH (Auto) 6.0 10/13/23 13:49 Specific Laurel (Auto) 1.010 10/13/23 13:49 Urine Protein (Auto) 0 mg/dL 10/13/23 13:49 Glucose (UA)(Auto) 0 mg/dL 10/13/23 13:49 Urine Ketones (Auto) Negative 10/13/23 13:49 Urine Blood (Auto) 80 Jeremiah/uL 10/13/23 13:49 Urine Nitrite (Auto) Negative 10/13/23 13:49 Urine Bilirubin (Auto) 0 mg/dL 10/13/23 13:49 Urine Urobilinogen (Auto) 0.2 mg/dL 10/13/23 13:49 Leukocyte Esterase (Auto) 70 Karl/uL 10/13/23 13:49 Date of Service: 08/18/23 EXAMINATION: US RETROPERITONEAL COMPLETE (RENAL) FINDINGS: RIGHT KIDNEY: 8.9 x 3.7 x 5.1 cm (SAG x AP x TRV). The kidney is normal in size, contour, and echogenicity. Renal cortical thickness is normal. No calculi, hydronephrosis or focal parenchymal lesions. LEFT KIDNEY: 9.9 x 4.1 x 5 cm (SAG x AP x TRV). The kidney is normal in size, contour, and echogenicity. Renal cortical thickness is normal. No calculi, hydronephrosis or focal parenchymal lesions. BLADDER: Well distended and normal. Prevoid bladder volume is 359 mL. Postvoid bladder volume is 6 mL. IMPRESSION: Kidneys and urinary bladder have a normal sonographic appearance. There is no evidence of nephrolithiasis or hydronephrosis. Assessment & Plan Assessment & Plan (1) Microhematuria: Code(s): R31.29 - Other microscopic hematuria Category: Medical Plan In office urinalysis results reviewed with the patient today; as noted above. Recent retroperitoneal ultrasound results reviewed with the patient today; as noted above. Patient currently denies any bothersome urinary issues or concerns. She reports be happy with current voiding parameters. Discussed, educated, and stressed the importance of drinking plenty of water daily. Retroperitoneal ultrasound in 1 year Follow-up in 1 year with imaging to be completed prior; or sooner with any issue s, concerns, and or questions. Orders: Orders Urine Cytology 10/13/23 R31.29 - Other microscopic hematuria AMB Urinalysis Automated 10/13/23 Z13.9 - Encounter for screening, unspecified Patient Instructions: The patient had an opportunity to ask questions regarding the treatment plan. All questions were answered. Physical exam, labs, and imaging were discussed and reviewed in detail. As well as risks, benefits, and discussion of treatment choices. No major barriers to understanding were identified. The patient expressed understanding and agreement with the above treatment plan. The patient was made aware they should contact our office by phone for worsening of their current condition, the appearance of new symptoms, or with any questions or concerns. Compliance is encouraged with any medications and follow up testing that is ordered. It is a privilege to be allowed the opportunity to participate in? your urological care.? Again, if you have any questions or concerns If you have any questions or concerns please do not hesitate to contact me. The office is [phone]. This note is constructed using voice recognition software. While every effort has been made to ensure accuracy digital strategist errors may have been included. Yours sincerely, BOBBY Magallon
== END 2023-10-13 14:33 | disposition home or self-care (01) ==
PROVIDERS: Visit Provider Nurse Practitioner Family
DX: R31.29 Other microscopic hematuria (principal)
CPT/HCPCS: 99213

== ENCOUNTER 2023-12-04 11:44 | Outpatient (REF) | payer OTHER, SELFPAY ==
--- NOTE | ~2023-12-04 | US_ITS ---
EXAMINATION: US ABDOMEN LIMITED CLINICAL INFORMATION: Patient with history of liver cyst. COMPARISON: Ultrasound retroperitoneal 08/18/2023. CT abdomen and pelvis 07/22/2022. MR abdomen 10/28/2021. Ultrasound abdomen 09/04/2020. TECHNIQUE: Real-time imaging of the right upper quadrant abdominal viscera. FINDINGS: PANCREAS: Normal. LIVER: The liver is normal in size. The liver contour is normal. Parenchymal echogenicity is normal. Circumscribed echogenic avascular right hepatic lobe lesion measures 1.2 x 1.2 x 1.0 cm. There is no intrahepatic biliary duct dilatation seen. GALLBLADDER: Normal. The gallbladder is physiologically distended without evidence of stones, sludge, polyps, wall thickening or pericholecystic fluid. COMMON BILE DUCT: Normal in caliber measuring 0.30 cm in diameter. RIGHT KIDNEY: Normal. No hydronephrosis. No renal calculi or focal parenchymal lesions. The kidney measures 9.0 cm in maximum dimension. FREE FLUID: None. US/US abdomen limited IMPRESSION: A circumscribed, echogenic, avascular liver lesion measuring 1.2 cm. In the absence of known malignancy or risk factors for hepatic malignancy this likely reflect a hemangioma. If known malignancy or risk factors for hepatic malignancy and MR abdomen could be obtained for definitive characterization.
== END 2023-12-04 11:45 | disposition home or self-care (01) ==
LOC: HO.US 11:44
PROVIDERS: PCP Student in an Organized Health Care Education/Training Program; Visit Provider Student in an Organized Health Care Education/Training Program
DX: K76.9 Liver disease, unspecified (principal)
CPT/HCPCS: 76705

== ENCOUNTER 2023-12-04 12:38 | Outpatient (REF) | payer OTHER, SELFPAY ==
[2023-12-05 11:53] LABS: Hepatitis B Surface Ab Qnt >1000 mIU/mL (> OR = 10)
[2023-12-06 23:49] LABS: TS Negative Control Passed; TS Panel A 0; TS Panel B 0; TS Positive Control Passed; TSpotTB Negative (Negative)
== END 2023-12-04 12:39 | disposition home or self-care (01) ==
LOC: HO.HHCL 12:38
PROVIDERS: Visit Provider Nurse Practitioner Family
DX: Z00.00 Encounter for general adult medical examination without abnormal findings (principal); Z20.9 Contact with and (suspected) exposure to unspecified communicable disease
CPT/HCPCS: 36415; 86317; 86481